=== PATIENT | male | born 1930 | race Caucasian/White ===

== ENCOUNTER → 2017-03-19 | Outpatient (CLI) | payer MEDICARE, OTHER ==
[~2017-03-19] MED LIST: ASPI81CH CHEW; ATOR10TA15 PO; AZOP1SUS RIGHT EYE; LEVO25TA4 PO; METO25TA3 PO; MULTTAB67 PO; OLOD1AER2 INH; PERC5TAB12 PO; TIMO0.5S30 EACH EYE
--- NOTE | 2017-03-19 11:55 | RADRPT ---
EXAM DATE/TIME: 03/19/2017 11:28 [facility] COMPARISON: No previous studies available for comparison. INDICATIONS : Pre-op aortic revision. Evaluate for pneumothorax, pneumonia, or any communicable diseases. MEDICAL HISTORY : None. SURGICAL HISTORY : Cholecystectomy. Left hip replacement. ENCOUNTER: Initial ACUITY: 1 day PAIN SCORE: 0/10 LOCATION: Bilateral chest FINDINGS: The lungs are hypoaerated. There is diffuse coarse interstitial thickening especially along the perip nehemias of the lungs. There is no evidence of consolidating airspace disease or suspicious mass densitie s. Heart and mediastinal structures are unremarkable. CONCLUSION: 1. Hypoaerated lungs with diffuse interstitial disease characteristic of pulmonary fibrosis and restr ictive lung disease. 2. No evidence of consolidating airspace disease. Garry Torres MD on March 19, 2017 at 11:51 Board Certified Radiologist. This report was verified electronically.
== END ==
LOC: CPRE 10:42
PROVIDERS: ATTEND Surgery
DX: Z01.812 Encounter for preprocedural laboratory examination (principal); Z01.811 Encounter for preprocedural respiratory examination; I71.4 Abdominal aortic aneurysm, without rupture
CPT/HCPCS: 36415; 71020; 80048; 85027; 85610; 86077; 86850; 86870; 86880; 86900; 86901; 86902; 86920; 86922

== ENCOUNTER 2017-04-15 08:42 | Observation (INO) | payer MEDICARE, OTHER ==
[~2017-04-15] VITALS: Ht 177.8 cm; Wt 74.1 kg
[2017-04-15] VITALS (8 sets, daily range): BP systolic 117–170; BP diastolic 58–98; PULSE 60–82; RESP 16–20; TEMP 97.4–97.6; O2SAT 96–100
[~2017-04-15 08:42] MED LIST changes: +ASPI-516 CHEW; -ASPI81CH CHEW; -ATOR10TA15 PO
[2017-04-15] MEDS ORDERED: IOHEXOL 350 MG/ML 100 ML BTL (for RAD DIAG) OTHER ONE (08:43)
[2017-04-15] MEDS ORDERED: SODIUM CHLORIDE 0.9% 1000 ML IV SCH ×2 (09:00→10:15)
[2017-04-15] MEDS ORDERED: LACTATED RINGER'S 1000 ML IV PRN (09:15)
[2017-04-15] MEDS ORDERED: POVIDONE IODINE 5% (ANTISEPSIS KIT) 4 APPLICATIONS EACH NARE PRN (09:15)
[2017-04-15] MEDS ORDERED: CHLORHEXIDINE GLUCONATE 2 % 1 PACK (2 CLOTHS) TOPICAL PRN (09:15)
[2017-04-15] MEDS ORDERED: INSULIN HUMAN REGULAR 1,000 UNITS/10 ML VIAL SQ PRN (09:15)
[2017-04-15] MEDS ORDERED: METOPROLOL TARTRATE 25 MG TAB PO PRN (09:15)
[2017-04-15] MEDS ORDERED: SODIUM CHLORID 0.9% 500 ML IV PRN (09:15)
[2017-04-15] MEDS ORDERED: ATOR40TA16 PO (09:39)
[2017-04-15] MEDS ORDERED: BACT800T5 PO (09:39)
[2017-04-15] MEDS ORDERED: predniSONE 50 MG TAB PO ONE (10:00)
[2017-04-15] MEDS ORDERED: diphenhydrAMINE HCL 50 MG CAP PO ONE (10:00)
[2017-04-15 10:05] LABS: AUTOMATED NEUTROPHIL # 2.6 TH/MM3 (1.8-7.7); BASOPHIL % 0.7 % (0.0-2.0); HEMATOCRIT 29.1 % (39.0-51.0); LYMPH % 10.5 % (9.0-44.0); LYMPHOCYTE # 0.3 TH/MM3 (1.0-4.8); MEAN CELL VOLUME 114.1 FL (80.0-100.0); MEAN CORPUSCULAR HEMOGLOBIN 38.3 PG (27.0-34.0); MEAN CORPUSCULAR HGB CONC 33.6 % (32.0-36.0); MONO % 7.5 % (0.0-8.0); NEUT % 81.3 % (16.0-70.0); PLATELET COUNT 206 TH/MM3 (150-450); RED BLOOD COUNT 2.55 MIL/MM3 (4.50-5.90); RED CELL DISTRIBUTION WIDTH 16.8 % (11.6-17.2); WHITE BLOOD COUNT 3.2 TH/MM3 (4.0-11.0)
[2017-04-15 10:06] LABS: HEMO FLAGS AUTO DIFF
[2017-04-15] MEDS ORDERED: VANCOMYCIN 1000 MG/NS 250 ML - implanted port/tunneled catheter IV SCH ×2 (10:15)
[2017-04-15] MEDS ORDERED: ceFAZolin 2 GM PREMIX 50 ML - implanted port/tunneled catheter insertion IV SCH (10:15)
[2017-04-15 10:16] LABS: APTT (PATIENT) 30.2 SEC (24.3-30.1); PROTHROMBIN TIME - PATIENT 10.9 SEC (9.8-11.6)
--- NOTE | 2017-04-15 10:22 | PD.VS.PN ---
Subjective Subjective/Hospital Course Pt w/o complaints Pt denies abdominal/back pain Right Groin Incision with improved healing Objective Vitals/I&O Date Time Temp Pulse Resp B/P (MAP) Pulse Ox O2 Delivery O2 Flow Rate FiO2 04/15/17 09:50 96 Room Air 04/15/17 09:33 97.4 20 170/98 (122) 96 Physical Exam GENERAL: A&OX3,NAD,GCS15 SKIN: Warm and dry Right groin incision w/ improved healing and slight white exudate proximal end of incision line GASTROINTESTINAL: Abdomen soft, non-tender, nondistended. Pt w/o back pain Laboratory Laboratory Tests Test 04/15/17 09:45 White Blood Count 3.2 Red Blood Count 2.55 Hemoglobin 9.8 Hematocrit 29.1 Mean Corpuscular Volume 114.1 Mean Corpuscular Hemoglobin 38.3 Mean Corpuscular Hemoglobin Concent 33.6 Red Cell Distribution Width 16.8 Platelet Count 206 Mean Platelet Volume 8.8 Neutrophils (%) (Auto) 81.3 Lymphocytes (%) (Auto) 10.5 Monocytes (%) (Auto) 7.5 Eosinophils (%) (Auto) 0.0 Basophils (%) (Auto) 0.7 Neutrophils # (Auto) 2.6 Lymphocytes # (Auto) 0.3 Monocytes # (Auto) 0.2 Eosinophils # (Auto) 0.0 Basophils # (Auto) 0.0 CBC Comment AUTO DIFF Assessment and Plan Assessment: (1) AAA (abdominal aortic aneurysm) without rupture Status: Chronic Plan Mr. Vieyra is an 87/M who has a hx of AAA that was repaired with an EVAR several years ago by an outside institution. 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
[2017-04-15 10:24] LABS: BICARBONATE 19.8 MEQ/L (21.0-32.0); POTASSIUM 4.3 MEQ/L (3.5-5.1)
[2017-04-15 10:38] LABS: BANDS 5 % (0-6); BASOPHILS 3 % (0-2); EOSINOPHILS 1 % (0-4); METAMYELOCYTES 2 % (0-1); MYELOCYTES 3 % (0-0); NEUTROPHIL # MANUAL DIFF 2.7 TH/MM3 (1.8-7.7); POLYS (SEG NEUTROPHILS) 75 % (16-70); WBC DIFF SAMPLE 100
[2017-04-15 10:39] LABS: OVALOCYTES 1+ (NORMAL); PLATELET ESTIMATE SMEAR NORMAL (NORMAL); PLATELET MORPHOLOGY NORMAL (NORMAL); SCAN/DIFF FINAL DIFF MANUAL
[2017-04-15] MEDS ORDERED: PHENYLEPH/NS 1000 MCG/10 ML SYR IV ONE (12:00)
[2017-04-15] MEDS ORDERED: LIDOCAINE HCL 1% PF 5 ML AMPULE OTHER ONE (12:00)
[2017-04-15] MEDS ORDERED: ePHEDrine/NS 25 MG/5 ML SYR IV ONE (12:00)
[2017-04-15] MEDS ORDERED: ROCURONIUM INJ 50 MG/5 ML SYRINGE IV PUSH ONE (12:00)
[2017-04-15] MEDS ORDERED: PROPOFOL 200 MG/20 ML AMP IV ONE (12:00)
[2017-04-15] MEDS ORDERED: PHENYLEPHRINE HCL 10 MG/ML VIAL IV ONE (12:00)
--- NOTE | 2017-04-15 13:36 | RADRPT ---
EXAM DATE/TIME: 04/15/2017 12:27 [facility] COMPARISON: No previous studies available for comparison. 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 Despite multiple attempts, there is persistent endoleak with sac enlargement. There fore, patient presents for direct sac puncture and embolization. Sac puncture will be performed under CT guidance. DEVICE(S): 1.) Poon guide wire MEDICAL HISTORY : aneurysm. SURGICAL HISTORY : aneurysm coil. ENCOUNTER: Initial ACUITY: 1 day PAIN SCORE: 0/10 LOCATION: Left PROCEDURE: PROCEDURE : CT guided puncture and placement of 4 Armenian catheter and right iliac aneurysm sac The risks, benefits and alternatives to the procedure were explained and verbal and written consent w as obtained. Using automated exposure control and adjustment of the mA and/or kV according to patien t size, radiation dose was kept as low as reasonably achievable to obtain optimal diagnostic quality images. The site was prepped in sterile fashion. Full sterile technique was used, including cap, ma sk, sterile gloves and gown and a large sterile sheet. Hand hygiene and 2% chlorhexidine and/or beta dine/alcohol prep was utilized per protocol for cutaneous antisepsis. The skin and subcutaneous tiss ues were infiltrated with local anesthetic solution. DICOM format image data is available electronic ally for review and comparison. 21 gauge micropuncture needle was advanced into the aneurysm sac under direct CT guidance. This was s ubsequently exchanged for a 3/4 dilator over a 0.018 wire. Next, a short Poon wire was coiled in the aneurysm sac and the dilator was exchanged for a 4 Armenian Arrieta catheter. Position was confirmed with CT. Catheter was then secured to the skin and patient was transferred to interventional radiolo gy. CONCLUSION: 1. CT guided puncture of right iliac aneurysm sac with placement of 4 Armenian catheter for planned emb olization in interventional radiology suite. Junito Shaffer MD on April 15, 2017 at 13:31 Board Certified Radiologist. This report was verified electronically.
[2017-04-15] MEDS ORDERED: DO NOT ADM ANY ANTICOAGULANT DRUGS PRN (15:22)
--- NOTE | 2017-04-15 15:34 | PD.RAD ---
Post Procedure Progress Note Pre Procedure Diagnosis: (1) AAA (abdominal aortic aneurysm) without rupture (2) S/P AAA repair Post Procedure Diagnosis: (1) AAA (abdominal aortic aneurysm) without rupture (2) S/P AAA repair Procedure Date: Apr 15, 2017 Supervising Radiologist: Junito Shaffer Proceduralist/Assist: Phyllis Hawkins, RT(R)(CV), Betty Stovall RT(R) Anesthesia: General Plan of Activity Patient to Unit: Nursing Unit Patient Condition: Good See PACS Report for procedural detail/treatment Junito Shaffer MD Apr 15, 2017 15:34
--- NOTE | 2017-04-15 15:54 | RADRPT ---
EXAM DATE/TIME: 04/15/2017 13:23 [facility] COMPARISON: No previous studies available for comparison. INDICATIONS : History of endoluminal stent graft placement for exclusion of large iliac aneurysm with internal iliac branch coiling. Despite multiple attempts, there is persistent endoleak with sac enlargement. Therefore, patient presents for direct sac puncture and embolization. Sac puncture was performed under CT guidance and the patient now presents for further evaluation. MEDICAL HISTORY : Hypothyroid CODP OA SURGICAL HISTORY : AAA Left hip surgery ENCOUNTER: Initial ACUITY: 2 weeks PAIN SCORE: 0/10 FLUORO TIME: 14.5 minutes IMAGE SERIES: 11 ACCESS SITE: aneurysm sack CONTRAST: 1.) 50 cc Omnipaque (iohexol) 350 DEVICE(S): 1.) Right internal iliac artery 5mm x 3mm embolic coil(s) 2.) Right internal iliac artery 5mm x 3mm embolic coil(s) 3.) Right internal iliac artery 6mm x 3mm embolic coil(s) 4.) Right internal iliac artery 8mm x 20cm embolic coil(s) 5.) Right internal iliac artery 7mm x 3mm embolic coil(s) 6.) Right internal iliac artery 10mm x 20cm embolic coil(s) 7.) Right internal iliac artery Gelfoam Anesthesia and pain control was provided by the Anesthesia department. Patient was premedicated per protocol for underlying contrast media allergy. PROCEDURE : 1. Angiography through the previously placed catheter in the iliac and some sac 2. Selective catheter placement and internal iliac artery branch which had angiography 3. Coil embolization of 2 separate internal iliac branches 4. Gelfoam embolization of the aneurysm sac The risks, benefits and alternatives to the procedure were explained and verbal and written consent w as obtained. The site was prepped in sterile fashion. Full sterile technique was used, including ca p, mask, sterile gloves and gown and a large sterile sheet. Hand hygiene and 2% chlorhexidine and/or betadine/alcohol prep was utilized per protocol for cutaneous antisepsis. Sterile gel and sterile p robe cover were utilized for ultrasound guidance. The skin and subcutaneous tissues were infiltrated with local anesthetic solution. Patient was transferred from CT following direct aneurysm sac puncture. Angiography was performed thr ough the existing catheter in the aneurysm sac. This demonstrated brisk flow from 2 separate internal iliac artery branches originating from the sac. Catheter was then exchanged for a 5 Faroese sheath an d a 5 Faroese Arrieta catheter which was used as individually select each branch. Each branch was th en embolized with coils, as above. Followup angiography demonstrated stasis of flow in the aneurysm s ac. The aneurysm sac was therefore embolized with approximately 10 cc of Gelfoam slurry. Wires and ca theters were then removed. The puncture site was closed with manual pressure and hemostasis was obtained. The patient tolerated the procedure well and there were no complications. CONCLUSION: 1. Angiography confirms brisk flow from two internal iliac artery branches arising directly from the aneurysm sac. 2. Technically successful coil embolization of internal iliac artery branches and Gelfoam embolizatio n of the aneurysm sac. Junito Shaffer MD on April 15, 2017 at 15:33 Board Certified Radiologist. This report was verified electronically.
--- NOTE | 2017-04-15 16:10 | HHI.HP ---
[facility] Service Family Medicine Primary Care Physician has new PCP Admission Diagnosis Diagnoses: Chief Complaint: leaky EVAR International Travel<30 Days: No Contact w/Intl Traveler<30days: No Known Affected Area: No History of Present Illness Mr Vieyra is a pleasant 87YO male who is s/p EVAR 3 years ago who presents to [facility] for repair of a leaky EVAR, and we are consulted for medical management following EVAR leak repair. He lives alone in [place] [place] [place] and has a new PCP who he has not yet visited and cannot recall her name. His sxs for presenting included abdominal aortic pain and the leak was found by CT scan. He also complains of some RLE swelling. He is in the PACU following surgery for the interview and is experiencing no sxs or pain. (Saul Brewster MD R1) Review of Systems Constitutional: COMPLAINS OF: Weight loss (lost 40 lbs over last 3 months), Change in appetite (decrease in appetite), DENIES: Fever, Weight gain Ears, nose, mouth, throat: DENIES: Oral lesions, Throat pain, Hoarseness Respiratory: COMPLAINS OF: Cough, DENIES: Wheezing Cardiovascular: COMPLAINS OF: Dyspnea on Exertion, DENIES: Chest pain, Palpitations Gastrointestinal: DENIES: Abdominal pain, Black stools, Bloody stools, Constipation, Diarrhea, Nausea, Vomiting Genitourinary: COMPLAINS OF: Urinary frequency, Nocturia (every 2 hours), DENIES: Urinary incontinence Integumentary: DENIES: Rash Neurologic: COMPLAINS OF: Paresthesias (right hand post-op), DENIES: Headache ( Saul Brewster MD R1) Past Family Social History Past Medical History none reported Past Surgical History left hip replacement EVAR Reported Medications Reported Meds & Active Scripts Active Reported Bactrim DS (Sulfamethoxazole-Trimethoprim) 800-160 Mg Tab 1 Tab PO BID Atorvastatin (Atorvastatin Calcium) 40 Mg Tab 40 Mg PO HS Striverdi Respimat Inh (Olodaterol Inh) 2.5 Mcg/Actuation Aer 1 Puff INH DAILY Timolol Opth Drops 0.5 % Soln 1 Drop EACH EYE DAILY Azopt Opth Drops (Brinzolamide) 1% Susp 1 Drop RIGHT EYE BID Multiple Vitamin 1 Tab 1 Tab PO DAILY Levothyroxine (Levothyroxine Sodium) 25 Mcg Tab 75 Mcg PO DAILY Aspirin 81 Mg Chew 81 Mg CHEW DAILY (Saul Brewster MD R1) Allergies: Coded Allergies: Iodinated Contrast- Oral and IV Dye (Verified Allergy, Severe, Hives, 04/15) GETS PREMEDICATED diltiazem (Verified Allergy, Unknown, 04/15/17) PT DENIES Active Ordered Medications Current Medications Medications (Trade) Dose Ordered Sig/Clara Route Start Time Stop Time Status Last Admin Lactated Ringer's 1,000 ml @ 30 mls/hr Q24H PRN IV 04/15/17 09:15 04/18/17 09:14 Sodium Chloride 500 ml @ 30 mls/hr [id number] PRN IV 04/15/17 09:15 04/18/17 09:14 Sodium Chloride 1,000 ml @ 30 mls/hr Q24H IV 04/15/17 10:15 04/18/17 10:14 04/15/17 10:15 Vancomycin HCl 1000 mg/Sodium Chloride 250 ml @ 250 mls/hr NON MORSE INTERCEPT TECHNICIAN IV 04/15/17 10:15 04/18/17 10:14 04/15/17 11:00 Cefazolin Sodium/ Dextrose 50 ml @ 100 mls/hr NON MORSE INTERCEPT TECHNICIAN IV 04/15/17 10:15 04/18/17 10:14 04/15/17 11:00 Miscellaneous Information ALL NURSING DEPARTME... UNSCH PRN .XX 04/15/17 15:22 04/16/17 15:21 (Aspirin Chew) 81 mg DAILY CHEW 04/16/17 09:00 (Lipitor) 40 mg HS PO 04/15/17 21:00 (Timoptic 0.5% Opth Soln) 1 drop DAILY EACH EYE 04/16/17 09:00 (Theragran) 1 tab DAILY PO 04/16/17 09:00 Patient Own Medication PT OWN MED: AZOPT O... BID RIGHT EYE 04/15/17 21:00 Future Hold Patient Own Medication PT OWN MED: STRIVE... DAILY INH 04/16/17 09:00 Future Hold (Synthroid) 75 mcg DAILY@0600 PO 04/16/17 06:00 Family History none Social History stopped smoking in 1970s sometimes a glass of wine with dinner no drugs no pets (Saul Brewster MD R1) Physical Exam Vital Signs Vital Signs Date Time Temp Pulse Resp B/P (MAP) Pulse Ox O2 Delivery O2 Flow Rate FiO2 04/15/17 15:18 97.5 73 18 153/70 (97) 100 Room Air 04/15/17 09:50 96 Room Air 04/15/17 09:33 97.4 20 170/98 (122) 96 Physical Exam GENERAL: This is a well-nourished, well-developed patient, in no apparent distress. SKIN: No rashes, ecchymoses or lesions. Cool and dry. Right groin surgical scar c/d/i with scant non purulent drainage. HEAD: Atraumatic. Normocephalic. MMM. EYES: Pupils equal round and reactive. Extraocular motions intact. No scleral icterus. No injection or drainage. ENT: Nose without bleeding or drainage. Throat without erythema, tonsillar hypertrophy or exudate. Uvula midline. Airway patent. NECK: Trachea midline. No JVD or lymphadenopathy. Supple, nontender, no meningeal signs. CARDIOVASCULAR: Regular rate and rhythm without murmurs, gallops, or rubs. RESPIRATORY: Clear to auscultation. Breath sounds equal bilaterally. No wheezes , rales, or rhonchi. No increased WOB. GASTROINTESTINAL: Abdomen soft, non-tender, nondistended. No hepato-splenomegaly , or palpable masses. No guarding. Midline surgical scar covered with bandage. MUSCULOSKELETAL: Extremities without clubbing, cyanosis, or edema. No joint tenderness, effusion, or edema noted. No calf tenderness. Mild fasciculations of right thigh muscles. NEUROLOGICAL: Awake and alert. Cranial nerves II through XII intact. Motor and sensory grossly within normal limits. Normal speech. Laboratory Laboratory Tests Test 04/15/17 09:45 White Blood Count 3.2 Red Blood Count 2.55 Hemoglobin 9.8 Hematocrit 29.1 Mean Corpuscular Volume 114.1 Mean Corpuscular Hemoglobin 38.3 Mean Corpuscular Hemoglobin Concent 33.6 Red Cell Distribution Width 16.8 Platelet Count 206 Mean Platelet Volume 8.8 Neutrophils (%) (Auto) 81.3 Lymphocytes (%) (Auto) 10.5 Monocytes (%) (Auto) 7.5 Eosinophils (%) (Auto) 0.0 Basophils (%) (Auto) 0.7 Neutrophils # (Auto) 2.6 Lymphocytes # (Auto) 0.3 Monocytes # (Auto) 0.2 Eosinophils # (Auto) 0.0 Basophils # (Auto) 0.0 CBC Comment AUTO DIFF Differential Total Cells Counted 100 Neutrophils % (Manual) 75 Band Neutrophils % 5 Lymphocytes % 10 Monocytes % 1 Eosinophils % 1 Basophils % 3 Neutrophils # (Manual) 2.7 Metamyelocytes 2 Myelocytes 3 Differential Comment FINAL DIFF MANUAL Platelet Estimate NORMAL Platelet Morphology Comment NORMAL Ovalocytes 1+ Prothrombin Time 10.9 Prothromb Time International Ratio 1.0 Activated Partial Thromboplast Time 30.2 Blood Urea Nitrogen 14 Creatinine 1.11 Random Glucose 144 Calcium Level 9.2 Sodium Level 136 Potassium Level 4.3 Chloride Level 105 Carbon Dioxide Level 19.8 Anion Gap 11 Estimat Glomerular Filtration Rate 63 (Saul Brewster MD R1) Result Diagram: 04/15/1745 04/15/1745 Imaging Last Impressions Guidance Needle Placement CT 04/15/17 0000 Signed Impressions: Service Date/Time: Saturday, April 15, 2017 12:27 - CONCLUSION: 1. CT guided puncture of right iliac aneurysm sac with placement of 4 German catheter for planned embolization in interventional radiology suite. Junito Shaffer MD Embolization 04/15/17 0000 Signed Impressions: Service Date/Time: Saturday, April 15, 2017 13:23 - CONCLUSION: 1. Angiography confirms brisk flow from two internal iliac artery branches arising directly from the aneurysm sac. 2. Technically successful coil embolization of internal iliac artery branches and Gelfoam embolization of the aneurysm sac. Junito Shaffer MD (Saul Brewster MD R1) Septic Shock Reassessment Heart: Regular rate and rhythm Lungs: Clear Skin: Warm, Dry Peripheral Pulses: Weak Right Dorsalis Pedis Weak Left Dorsalis Pedis Bounding Right Radial Bounding Left Radial Capillary Refill: <2 seconds (Saul Brewster MD R1) Caprini VTE Risk Assessment Caprini VTE Risk Assessment: Mod/High Risk (score >= 2) Caprini Risk Assessment Model Point Value = 1 Point Value = 2 Point Value = 3 Point Value = 5 Age 41-60 Minor surgery BMI > 25 kg/m2 Swollen legs Varicose veins or History of unexplained or recurrent spontaneous Oral contraceptives or hormone replacement Sepsis (< 1 month) Serious lung disease, including pneumonia (< 1 month) Abnormal pulmonary function Acute myocardial infarction Congestive heart failure (< 1 month) History of inflammatory bowel disease Medical patient at bed rest Age 61-74 Arthroscopic surgery Major open surgery (> 45 min) Laparoscopic surgery (> 45 min) Malignancy Confined to bed (> 72 hours) Immobilizing plaster cast Central venous access Age >= 75 History of VTE Family history of VTE Factor V Leiden Prothrombin [id number] Lupus anticoagulant Anticardiolipin antibodies Elevated serum homocysteine Heparin-induced thrombocytopenia Other congenital or acquired thrombophilia Stroke (< 1 month) Elective arthroplasty Hip, pelvis, or leg fracture Acute spinal cord injury (< 1 month) Prophylaxis Regimen Total Risk Factor Score Risk Level Prophylaxis Regimen 0-1 Low Early ambulation 2 Moderate Order ONE of the following: *Sequential Compression Device (SCD) *Heparin 5000 units SQ BID 3-4 Higher Order ONE of the following medications: *Heparin 5000 units SQ TID *Enoxaparin/Lovenox 40 mg SQ daily (WT < 150 kg, CrCl > 30 mL/min) *Enoxaparin/Lovenox 30 mg SQ daily (WT < 150 kg, CrCl > 10-29 mL/min) *Enoxaparin/Lovenox 30 mg SQ BID (WT < 150 kg, CrCl > 30 mL/min) AND/OR *Sequential Compression Device (SCD) 5 or more Highest Order ONE of the following medications: *Heparin 5000 units SQ TID (Preferred with Epidurals) *Enoxaparin/Lovenox 40 mg SQ daily (WT < 150 kg, CrCl > 30 mL/min) *Enoxaparin/Lovenox 30 mg SQ daily (WT < 150 kg, CrCl > 10-29 mL/min) *Enoxaparin/Lovenox 30 mg SQ BID (WT < 150 kg, CrCl > 30 mL/min) AND *Sequential Compression Device (SCD) (Saul Brewster MD R1) Assessment and Plan Assessment and Plan 87 YO male s/p type II Endoleak repair for medical management Code Status FULL Discussed Condition With Dawood Morley and Khalida (Saul Brewster MD R1) Attending Attestation Patient seen and examined. Case reviewed and discussed with the resident team. Agree with plan of care as discussed with me and documented in the resident note. (Odilia Barragan MD) Problem List: (1) S/P AAA repair ICD Codes: Z98.890 - Other specified postprocedural states; Z86.79 - Personal history of other diseases of the circulatory system Status: Acute (2) Hypothyroid ICD Codes: E03.9 - Hypothyroidism, unspecified Status: Chronic Plan: Continue levothyroxine 75mcg/day (3) FEN/GI/PPx Status: Acute Plan: Diet: regular basic PPx: ASA 81mg; Cefazolin and Vancomycin during surgery GI: none Fluids: NS IVF @ 30ml/hr Home Meds: Continue -Timolol eye drops -Daily Striverdi inhaler -Multiviamin -Atorvastatin 40mg (Saul Brewster MD R1) Physician Certification 2 Midnight Certification Type: Admission for Inpatient Services Order for Inpatient Services The services are ordered in accordance with Medicare regulations or non- Medicare payer requirements, as applicable. In the case of services not specified as inpatient-only, they are appropriately provided as inpatient services in accordance with the 2-midnight benchmark. Estimated LOS (days): 3 days is the estimated time the patient will need to remain in the hospital, assuming treatment plan goals are met and no additional complications. Post-Hospital Plan: Not yet determined (Saul Brewster MD R1) Problem Qualifiers (1) Hypothyroid: Qualified Codes: E03.9 - Hypothyroidism, unspecified Saul Brewster MD R1 Apr 15, 2017 16:10 Odilia Barragan MD Apr 16, 2017 09:18
[2017-04-15 19:11] LABS: HEMATOCRIT 28.1 % (39.0-51.0); REVIEW FLAG FINAL
[2017-04-15] MEDS ORDERED: ATORVASTATIN 40 MG TAB PO SCH (21:00)
[2017-04-15] MEDS ORDERED: BRINZOLAMIDE RIGHT EYE SCH (21:00)
[2017-04-15] MEDS ORDERED: NON-FORMULARY DRUG (Brinzolamide Opth Drops (Azopt Opth Drops) 1 DROP) RIGHT EYE SCH (21:00)
[2017-04-15 23:19] LABS: HEMATOCRIT 24.3 % (39.0-51.0); REVIEW FLAG FINAL
[2017-04-16] VITALS (12 sets, daily range): BP systolic 120–150; BP diastolic 61–68; PULSE 58–78; RESP 16–18; TEMP 98; O2SAT 96–97
[2017-04-16 04:48] LABS: AUTOMATED NEUTROPHIL # 4.5 TH/MM3 (1.8-7.7); BASOPHIL % 0.1 % (0.0-2.0); HEMO FLAGS DIFF FINAL; LYMPH % 6.9 % (9.0-44.0); LYMPHOCYTE # 0.4 TH/MM3 (1.0-4.8); MEAN CELL VOLUME 113.1 FL (80.0-100.0); MEAN CORPUSCULAR HEMOGLOBIN 38.7 PG (27.0-34.0); MEAN CORPUSCULAR HGB CONC 34.2 % (32.0-36.0); MONO % 14.7 % (0.0-8.0); NEUT % 78.3 % (16.0-70.0); PLATELET COUNT 159 TH/MM3 (150-450); RED BLOOD COUNT 2.21 MIL/MM3 (4.50-5.90); RED CELL DISTRIBUTION WIDTH 16.2 % (11.6-17.2); WHITE BLOOD COUNT 5.8 TH/MM3 (4.0-11.0)
[2017-04-16 05:17] LABS: BICARBONATE 21.3 MEQ/L (21.0-32.0)
[2017-04-16] MEDS ORDERED: LEVOTHYROXINE SODIUM 75 MCG TAB PO SCH (06:00)
[2017-04-16] MEDS ORDERED: LEVOTHYROXINE SODIUM 25 MCG TAB PO SCH (06:00)
[2017-04-16] MEDS ORDERED: OLODATEROL INH SCH (09:00)
[2017-04-16] MEDS ORDERED: MULTIVITAMIN TAB PO SCH (09:00)
[2017-04-16] MEDS ORDERED: TIMOLOL MALEATE 0.5% OPHT SOLN 5 ML BTL EACH EYE SCH (09:00)
[2017-04-16] MEDS ORDERED: NON-FORMULARY DRUG (Multiple Vitamin 1 TAB) PO SCH (09:00)
[2017-04-16] MEDS ORDERED: [UNRECOGNIZED DRUG - OTHER] INH SCH (09:00)
[2017-04-16] MEDS ORDERED: ASPIRIN 81 MG CHEW TAB CHEW SCH (09:00)
--- NOTE | 2017-04-16 09:14 | PD.VS.PN ---
Subjective Subjective/Hospital Course Pt w/o complaints this am Pt denies abdominal/back pain Objective Vitals/I&O Date Time Temp Pulse Resp B/P (MAP) Pulse Ox O2 Delivery O2 Flow Rate FiO2 04/16/17 07:00 64 04/16/17 06:00 60 04/16/17 03:30 72 16 120/61 (80) 97 04/16/17 03:00 64 04/16/17 02:00 58 04/16/17 01:00 78 04/16/17 00:00 66 04/15/17 23:00 60 04/15/17 23:00 81 16 117/58 (77) 96 04/15/17 22:00 70 04/15/17 21:00 64 04/15/17 20:00 70 04/15/17 19:15 97.6 77 16 127/74 (91) 96 04/15/17 19:00 82 04/15/17 16:45 97.4 73 18 153/73 (99) 100 04/15/17 16:45 97.4 73 18 153/73 (99) 100 04/15/17 16:30 97.5 63 18 140/66 (90) 97 Room Air 04/15/17 16:15 75 18 141/75 (97) 98 Room Air 04/15/17 16:00 72 18 135/71 (92) 96 Room Air 04/15/17 15:45 68 18 129/64 (85) 98 Room Air 04/15/17 15:30 74 18 140/70 (93) 96 Room Air 04/15/17 15:18 97.5 73 18 153/70 (97) 100 Room Air 04/15/17 09:50 96 Room Air 04/15/17 09:33 97.4 20 170/98 (122) 96 04/16/17 04/16/17 04/16/17 07:00 15:00 23:00 Intake Total 960 ml Output Total 825 ml Balance 135 ml Physical Exam GENERAL: A&OX3,NAD,GCS15 SKIN: Warm and dry Right groin incision w/ improved healing and slight white exudate proximal end of incision line GASTROINTESTINAL: Abdomen soft, non-tender, nondistended. Pt denies pain Pt w/o back pain Laboratory Laboratory Tests Test 04/15/17 09:45 04/15/17 18:46 04/15/17 22:35 04/16/17 04:20 White Blood Count 3.2 Red Blood Count 2.55 Hemoglobin 9.8 9.4 8.3 Hematocrit 29.1 28.1 24.3 Mean Corpuscular Volume 114.1 Mean Corpuscular Hemoglobin 38.3 Mean Corpuscular Hemoglobin Concent 33.6 Red Cell Distribution Width 16.8 Platelet Count 206 Mean Platelet Volume 8.8 Neutrophils (%) (Auto) 81.3 Lymphocytes (%) (Auto) 10.5 Monocytes (%) (Auto) 7.5 Eosinophils (%) (Auto) 0.0 Basophils (%) (Auto) 0.7 Neutrophils # (Auto) 2.6 Lymphocytes # (Auto) 0.3 Monocytes # (Auto) 0.2 Eosinophils # (Auto) 0.0 Basophils # (Auto) 0.0 CBC Comment AUTO DIFF Differential Total Cells Counted 100 Neutrophils % (Manual) 75 Band Neutrophils % 5 Lymphocytes % 10 Monocytes % 1 Eosinophils % 1 Basophils % 3 Neutrophils # (Manual) 2.7 Metamyelocytes 2 Myelocytes 3 Differential Comment FINAL DIFF MANUAL Platelet Estimate NORMAL Platelet Morphology Comment NORMAL Ovalocytes 1+ Prothrombin Time 10.9 Prothromb Time International Ratio 1.0 Activated Partial Thromboplast Time 30.2 Blood Urea Nitrogen 14 16 Creatinine 1.11 0.76 Random Glucose 144 127 Calcium Level 9.2 9.1 Sodium Level 136 139 Potassium Level 4.3 4.0 Chloride Level 105 107 Carbon Dioxide Level 19.8 21.3 Anion Gap 11 11 Estimat Glomerular Filtration Rate 63 97 Test 04/16/17 04:26 White Blood Count 5.8 Red Blood Count 2.21 Hemoglobin 8.5 Hematocrit 25.0 Mean Corpuscular Volume 113.1 Mean Corpuscular Hemoglobin 38.7 Mean Corpuscular Hemoglobin Concent 34.2 Red Cell Distribution Width 16.2 Platelet Count 159 Mean Platelet Volume 8.9 Neutrophils (%) (Auto) 78.3 Lymphocytes (%) (Auto) 6.9 Monocytes (%) (Auto) 14.7 Eosinophils (%) (Auto) 0.0 Basophils (%) (Auto) 0.1 Neutrophils # (Auto) 4.5 Lymphocytes # (Auto) 0.4 Monocytes # (Auto) 0.8 Eosinophils # (Auto) 0.0 Basophils # (Auto) 0.0 CBC Comment DIFF FINAL Differential Comment Imaging Last 48 hours Impressions Guidance Needle Placement CT 04/15/17 0000 Signed Impressions: Service Date/Time: Saturday, April 15, 2017 12:27 - CONCLUSION: 1. CT guided puncture of right iliac aneurysm sac with placement of 4 Estonian catheter for planned embolization in interventional radiology suite. Junito Shaffer MD Embolization 04/15/17 0000 Signed Impressions: Service Date/Time: Saturday, April 15, 2017 13:23 - CONCLUSION: 1. Angiography confirms brisk flow from two internal iliac artery branches arising directly from the aneurysm sac. 2. Technically successful coil embolization of internal iliac artery branches and Gelfoam embolization of the aneurysm sac. Junito Shaffer MD Assessment and Plan Assessment: (1) AAA (abdominal aortic aneurysm) without rupture Status: Chronic Plan Mr. Vieyra is an 87/M who has a hx of AAA that was repaired with an EVAR several years ago by an outside institution. 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
[2017-04-16] MEDS ORDERED: PRED50 PO (12:48)
--- NOTE | 2017-04-16 13:22 | HHI.FPPN ---
Subjective Remarks Pt is feeling great and has been given the go-ahead for discharge by vascular surgery. Pt is voiding, passing flatus, tolerating PO, pain is controlled and is ambulating w/o dizziness or SOB. Olesn removed today and awaiting spontaneous void before discharge. (Saul Brewster MD R1) Objective Vitals Vital Signs Date Time Temp Pulse Resp B/P (MAP) Pulse Ox O2 Delivery O2 Flow Rate FiO2 04/16/17 11:50 75 18 150/67 (94) 96 04/16/17 11:00 75 04/16/17 10:00 66 04/16/17 09:00 68 04/16/17 08:00 98.0 77 16 124/68 (86) 96 04/16/17 08:00 70 04/16/17 07:00 64 04/16/17 06:00 60 04/16/17 03:30 72 16 120/61 (80) 97 04/16/17 03:00 64 04/16/17 02:00 58 04/16/17 01:00 78 04/16/17 00:00 66 04/15/17 23:00 60 04/15/17 23:00 81 16 117/58 (77) 96 04/15/17 22:00 70 04/15/17 21:00 64 04/15/17 20:00 70 04/15/17 19:15 97.6 77 16 127/74 (91) 96 04/15/17 19:00 82 04/15/17 16:45 97.4 73 18 153/73 (99) 100 04/15/17 16:45 97.4 73 18 153/73 (99) 100 04/15/17 16:30 97.5 63 18 140/66 (90) 97 Room Air 04/15/17 16:15 75 18 141/75 (97) 98 Room Air 04/15/17 16:00 72 18 135/71 (92) 96 Room Air 04/15/17 15:45 68 18 129/64 (85) 98 Room Air 04/15/17 15:30 74 18 140/70 (93) 96 Room Air 04/15/17 15:18 97.5 73 18 153/70 (97) 100 Room Air I/O 04/15/17 04/15/17 04/15/17 04/16/17 04/16/177/17 07:00 15:00 23:00 07:00 15:00 23:00 Intake Total 960 ml Output Total 750 ml 825 ml Balance -750 ml 135 ml Intake Oral 960 ml Output Urine Total 750 ml 825 ml (Saul Brewster MD R1) Result Diagram: 04/16/17 0426 04/16/17 0420 Imaging Last Impressions Guidance Needle Placement CT 04/15/17 0000 Signed Impressions: Service Date/Time: Saturday, April 15, 2017 12:27 - CONCLUSION: 1. CT guided puncture of right iliac aneurysm sac with placement of 4 Japanese catheter for planned embolization in interventional radiology suite. Junito Shaffer MD Embolization 04/15/17 0000 Signed Impressions: Service Date/Time: Saturday, April 15, 2017 13:23 - CONCLUSION: 1. Angiography confirms brisk flow from two internal iliac artery branches arising directly from the aneurysm sac. 2. Technically successful coil embolization of internal iliac artery branches and Gelfoam embolization of the aneurysm sac. Junito Shaffer MD Objective Remarks GENERAL: Well-nourished, well-developed patient who looks younger than stated age. SKIN: Warm and dry. No rashes. Surgical scar on right femoral crease well healed , c/d/i. Midline abdominal scar from procedure c/d/i. HEAD: Normocephalic. Atraumatic. MMM. EYES: No scleral icterus. No injection or drainage. NECK: Supple, trachea midline. No lymphadenopathy. No meningeal signs. CARDIOVASCULAR: Regular rate and rhythm without murmurs, gallops, or rubs. RESPIRATORY: Breath sounds equal bilaterally. No accessory muscle use. No increased WOB. GASTROINTESTINAL: Abdomen soft, non-tender, nondistended. Normal BS. EXTREMITIES: No cyanosis, or edema. Moves all spontaneously with 5/5 strength and corrdination. NEUROLOGICAL: Awake, alert, and oriented x 3. Non-focal. Medications and IVs Current Medications Medications (Trade) Dose Ordered Sig/Clara Route Start Time Stop Time Status Last Admin Lactated Ringer's 1,000 ml @ 30 mls/hr Q24H PRN IV 04/15/17 09:15 04/18/17 09:14 Sodium Chloride 500 ml @ 30 mls/hr [id number] PRN IV 04/15/17 09:15 04/18/17 09:14 Sodium Chloride 1,000 ml @ 30 mls/hr Q24H IV 04/15/17 10:15 04/18/17 10:14 04/15/17 10:15 Vancomycin HCl 1000 mg/Sodium Chloride 250 ml @ 250 mls/hr PLASTIC BUBBLE PACKER IV 04/15/17 10:15 04/18/17 10:14 04/15/17 11:00 Cefazolin Sodium/ Dextrose 50 ml @ 100 mls/hr PLASTIC BUBBLE PACKER IV 04/15/17 10:15 04/18/17 10:14 04/15/17 11:00 Miscellaneous Information ALL NURSING DEPARTME... UNSCH PRN .XX 04/15/17 15:22 04/16/17 15:21 (Aspirin Chew) 81 mg DAILY CHEW 04/16/17 09:00 04/16/17 09:01 (Lipitor) 40 mg HS PO 04/15/17 21:00 04/15/17 21:46 (Timoptic 0.5% Opth Soln) 1 drop DAILY EACH EYE 04/16/17 09:00 (Theragran) 1 tab DAILY PO 04/16/17 09:00 04/16/17 08:59 Patient Own Medication PT OWN MED: AZOPT O... BID RIGHT EYE 04/15/17 21:00 Future Hold Patient Own Medication PT OWN MED: STRIVE... DAILY INH 04/16/17 09:00 Future Hold (Synthroid) 75 mcg DAILY@0600 PO 04/16/17 06:00 04/16/17 07:08 (Saul Brewster MD R1) Urinary Catheter: No (Saul Brewster MD R1) Vascular Central Line Catheter: No (Saul Brewster MD R1) A/P Assessment and Plan 87 YO male s/p type II Endoleak repair for medical management (Saul Brewster MD R1) Attending Attestation Patient seen and examined. Case reviewed and discussed with the resident team. Agree with plan of care as discussed with me and documented in the resident note. (Odilia Barragan MD) Problem List: (1) S/P AAA repair ICD Codes: Z98.890 - Other specified postprocedural states; Z86.79 - Personal history of other diseases of the circulatory system Status: Acute Plan: Recovered well from surgery with no dizziness, loss of balance or s/s of hemodynamic instability -Tolerating PO, pain controlled, ambulating, voiding and passing flatus -Olsen removed and voiding spontaneously (2) Hypothyroid ICD Codes: E03.9 - Hypothyroidism, unspecified Status: Chronic Plan: Continue levothyroxine 75mcg/day (3) FEN/GI/PPx Status: Acute Plan: Diet: regular basic PPx: ASA 81mg; Cefazolin and Vancomycin during surgery GI: none Fluids: Discontinue IVF Home Meds: Continue -Timolol eye drops -Daily Striverdi inhaler -Multiviamin -Atorvastatin 40mg (Saul Brewster MD R1) Problem Qualifiers (1) Hypothyroid: Qualified Codes: E03.9 - Hypothyroidism, unspecified Saul Brewster MD R1 Apr 16, 2017 13:22 Odilia Barragan MD Apr 16, 2017 14:16
--- NOTE | 2017-04-16 13:28 | HHI.DCPOC ---
Discharge Care Plan Diagnosis: (1) AAA (abdominal aortic aneurysm) without rupture (2) Hypothyroid (3) S/P AAA repair Goals to Promote Your Health * To prevent worsening of your condition and complications * To maintain your health at the optimal level Directions to Meet Your Goals Take your medications as prescribed Follow your dietary instruction Follow activity as directed Keep your appointments as scheduled Take your immunizations and boosters as scheduled If your symptoms worsen call your PCP, if no PCP go to Urgent Care Center or Emergency Room Smoking is Dangerous to Your Health. Avoid second hand smoke Call the 24-hour hour crisis hotline for domestic abuse at Miriam Gaxiola MD R2 Apr 16, 2017 13:28
== END 2017-04-16 14:05 | disposition home or self-care (01) ==
LOC: HROP 08:42 → HRIP 08:43 → HCPC 17:09 → HROP 17:09
PROVIDERS: ADMIT Surgery; ATTEND Surgery
DX: I71.4 Abdominal aortic aneurysm, without rupture (principal); E03.9 Hypothyroidism, unspecified; M79.89 Other specified soft tissue disorders; Z86.79 Personal history of other diseases of the circulatory system; Z96.642 Presence of left artificial hip joint; Z87.891 Personal history of nicotine dependence
CPT/HCPCS: 36160; 37242; 75736; 77012; 80048; 85007; 85014; 85018; 85025; 85027; 85610; 85730; 96374; 96375; C1769; C1887; C1894; G0378; J0690; J2370; J3370; J7030; J7050; J7512; Q0163; Q9967

== ENCOUNTER 2017-04-23 11:01 | Day surgery (SDC) | payer MEDICARE, OTHER ==
[~2017-04-23 11:01] MED LIST changes: +ATOR40TA16 PO; -METO25TA3 PO; -PERC5TAB12 PO; +PRED50 PO
[2017-04-23 11:17] VITALS: BP 151/86; PULSE 88; RESP 20; TEMP 97.8; O2SAT 99
--- NOTE | 2017-04-23 15:22 | RADRPT ---
EXAM DATE/TIME: 04/23/2017 00:00 [facility] COMPARISON : No previous studies available for comparison. INDICATIONS : F/U AAA REPAIR OBJECTIVE: Temperature: 97.8 Heart Rate: 88 Blood Pressure: 151/86 Respiratory: 22 Oximetry: 99 HISTORY OF PRESENT ILLNESS: 87-year-old gentleman with endovascular stent graft repair for abdominal aortic aneurysm, right iliac artery aneurysm with endoleak of the same. Patient is status post embolization of the endoleak. PAST MEDICAL HISTORY : 1. Aneurysm, abdominal. PAST SURGICAL HISTORY : 1. AAA repair PHYSICAL EXAMINATION: Elderly gentleman in no acute distress. IMAGING STUDIES: Endovascular embolization study was reviewed with the patient and his demonstrating complete occ lusion of the previous endoleak. ASSESSMENT: Patient appears to be doing very well post coil embolization of the right iliac artery aneurysm endol eak. PLAN: Recommend followup CT a of the abdomen and pelvis in 2-3 months to ensure affective embolization. TIME SPENT: 20 minutes Dat Ingram MD on April 23, 2017 at 15:17 Board Certified Radiologist. This report was verified electronically.
== END 2017-04-23 12:15 | disposition home or self-care (01) ==
LOC: HROP 11:01 → HRIP 11:01 → HROP 12:15
PROVIDERS: ATTEND Radiology Body Imaging
DX: I71.4 Abdominal aortic aneurysm, without rupture (principal)